=== PATIENT | male | born 1955 | race Caucasian/White ===

== ENCOUNTER → 2018-08-29 14:10 | Outpatient (CLI) | payer OTHER, SELFPAY ==
--- NOTE | 2018-08-29 14:16 | CT_ITS ---
EXAM: CT LUNG LOW DOSE WO CONTRAST COMPARISON: None no prior CT nor CXR studies available for comparison HISTORY: 1 pack per day for 45 years. Equal 45 pack-year. Currently smoking. No signs or symptoms of lung cancer. TECHNIQUE: The exam was performed on a GE Light Speed [address] scanner using 3.0 mGy CTDI. A low dose helical CT CHEST was performed on a multi-detector scanner. All CT scans at this facility use one or more dose reduction techniques, viz.: automated exposure control, ma/kV adjustment per patient size (including targeted exams where dose is matched to indication, i.e. head) or iterative reconstruction technique. The LDCT was performed in a facility that meets the criteria for the screening program. Data regarding this exam was submitted to ACR which is an approved registry. The order for this exam indicates that it came as a result of a lung cancer screening counseling shard decision-making visit that included all the elements required of such a visit including smoking cessation. The radiologist interpreting this exam meets the [facility] criteria for the LDCT lung cancer screening program. The exam is reported using the Lung-RADS classification scale and reported to the ACR registry. NOTE: This study was performed for the specific purposes of lung cancer screening and is not an alternative to diagnostic chest CT. RADIATION DOSE: CTDI vol(CT dose Index-volume) = 2.9mGy DLP (Dose Length Product) = 111.25 mGy-cm FINDINGS: *Largest Ovoid Nodule at peripheryLLL (axial image 59/coronal 45) . This measures up to 11.4 mm AP x 8 mm transverse & 9 mm height.. Ovoid soft tissue nodular density with no definitive calcification.-Mildly Suspicious nodule.-deems further evaluation as per protocol. Characterize Mild Suspicious Lung Nodule( LUNG RAD [id number] = due to 'new nodule greater than 8mm') There are other similar small nodules. Described below Several OTHER smaller areas of density/ & nodular densities within the lungs bilaterally, including a few minimal pleural based densities bilaterally tend to favor benign ( but may be with different perspective if there has been a right renal tumor ). These other small nodules discussed below likely will benefit from a a follow-up CT a few months. . Left Lung ... LLL small area of nodularity axial image 55, coronal slice 37. This measures up to 4.5 mm at its base ... LLL Mild fibrotic scarring overlying the left heart border, at medial aspect LLL- best seen sagittal slice 64, axial images 55-62. ... L UL Scant pleural-parenchymal scarring, anterior aspect lingula account for some minimal densities here. . L UL: Minimal wispy focal area of density periphery left midlung; 5 mm size ( sagittal slice 75, axial 38, 37.)-Likely reflects some scarring process related to the 4 mm calcified granuloma just medial to this area, at left midlung/along anterior aspect of the major fissure. Right Lung ... Minimal density at the anterior margin RML axial image 56, appears rather linear on sagittal image 24,.-Thus More likely reflects minimal linear scarring. ... Tiny just over 3 mm pleural-based density towards the periphery of the right lung apex pleural I in addition thyroid so on either no. Likely Reflect some minimal pleural & parenchymal scarring here.. Up to 6 mm mm benign-appearing fissure nodule/node on coronal image 50, axial slice 48.. This nodule along the along the inferior aspect of the major fissure. No Axial. With n smaller one measuring less than 3 mm just anterior to this, sagittal image 26 Scattered areas of more evident interstitial fibrotic changes for example just above the left hemidiaphragm. The anterior aspect of the RUL -------- . Mild to moderate centrilobular emphys
== END ==
PROVIDERS: PCP Family Medicine; Visit Provider Family Medicine
DX: Z12.2 Encounter for screening for malignant neoplasm of respiratory organs (principal); Z87.891 Personal history of nicotine dependence

== ENCOUNTER → 2018-10-31 07:12 | Outpatient (CLI) | payer MEDICARE, SELFPAY ==
[2018-10-31 13:44] LABS: Basophils % 0.4 % (0.1-2.0); Eosinophils # 0.3 K/mm3 (0.0-0.4); Eosinophils % 3.9 % (0.1-12.0); Hematocrit 44.3 % (42.0-52.0); Hemoglobin 15.3 g/dL (14.1-18.0); Lymphocytes # 1.8 K/mm3 (0.7-4.5); Lymphocytes % 26.1 % (10-50); Mean Corpuscular HGB Conc 34.5 g/dL (31.8-35.4); Mean Platelet Volume 8.7 fl (7.4-10.4); Monocytes # 0.4 K/mm3 (0.1-1.0); Monocytes % 5.2 % (1.7-9.3); Neutrophils # 4.5 K/mm3 (1.8-7.8); Neutrophils % 64.4 % (37.0-80.0); Platelet Count 213 K/mm3 (142-424); Red Blood Count 5.09 M/mm3 (4.60-6.20); Red Cell Distribution Width 13.1 % (11.5-17.5); White Blood Count 6.9 K/mm3 (4.8-10.8)
[2018-10-31 13:47] LABS: Activated Partial Thrombo Time 26.8 seconds (23.6-34.0); INR 0.96 (0.9-1.1)
== END ==
PROVIDERS: PCP Emergency Medicine; Visit Provider Emergency Medicine
DX: Z01.818 Encounter for other preprocedural examination (principal); Z51.81 Encounter for therapeutic drug level monitoring
CPT/HCPCS: 36415; 85025; 85610; 85730

== ENCOUNTER → 2018-11-04 09:55 | Outpatient (CLI) | payer MEDICARE, SELFPAY ==
--- NOTE | 2018-11-04 09:58 | CT_ITS ---
CT chest wo con HISTORY: ITS.REASON: left lung lesion/mass ORDERING PHYSICIAN: Quinton Trejo MD PATIENT AGE: 63 years COMPARISON: 08/29/2018 Technique: Axial images obtained. Sagittal, and coronal reformatted images are also generated and reviewed. All CT scans at the facility use one or more dose reduction, viz: automated exposure control, ma/kV adjustment per patient size (including targeted exams where dose is matched to indication, i.e. head), or iterative reconstruction technique. FINDINGS: The patient was scheduled for CT directed biopsy. Patient placed in the prone position and images obtained. Despite different positions and breathing methods small nodule within the left lower lobe persistently the 2 rib. Biopsy was therefore not performed. The nodule is not significant changed in size measuring approximately 10 x 7 mm without calcification. No mediastinal or hilar mass or adenopathy. There is COPD with paraseptal and centrilobular emphysema. There are scattered small subpleural nodular opacities once again noted which are not significantly changed. Upper abdominal images show prior right nephrectomy IMPRESSION: 1. Stable bilateral subpleural nodular densities. The largest nodule is in the left lower lobe in the subpleural region at 10 x 7 mm not significant changed. This nodule was not able to be biopsied due to overlying rib. Recommend [address] follow-up. 2. COPD/centrilobular and paraseptal edema
== END ==
PROVIDERS: PCP Emergency Medicine; Visit Provider Emergency Medicine
DX: R91.1 Solitary pulmonary nodule (principal)
CPT/HCPCS: 71250

== ENCOUNTER → 2019-05-20 14:26 | Outpatient (CLI) | payer MEDICARE, SELFPAY ==
--- NOTE | 2019-05-20 14:26 | CT_ITS ---
PROCEDURE: CT CHEST WO CON CLINICAL INDICATION: 6 mth f/u on nodule COMPARISON: LUNGSCREEN CT lung screening from 08/29/2018 TECHNIQUE: Axial images obtained with sagittal and coronal reformats. All CT scans at the facility use one or more dose reduction, viz: automated exposure control, ma/kV adjustment per patient size (including targeted exams where dose is matched to indication, i.e. head), or iterative reconstruction technique. FINDINGS: There are scattered small mediastinal lymph nodes. Coronary artery calcifications are. No evidence of pericardial effusion. There are centrilobular and paraseptal emphysematous changes. There hemangioma in the T12 vertebral body unchanged. Varicosities are present in the perisplenic region and retroperitoneum superiorly on the left. There is a 4 mm subpleural nodule in the right upper lobe. A 6 mm fissural nodules present on the right unchanged. Subpleural opacities are present in the right upper lobe anteriorly unchanged. Subpleural nodular density right lower lobe medially at 9 mm unchanged. Irregular opacity present in the left upper lobe laterally unchanged. Subpleural nodule in the left lower lobe once again noted at 12 x 11 mm unchanged. Additional small passed in left lung base laterally in the subpleural region unchanged. IMPRESSION: Overall no significant change in the multiple pulmonary nodules with the largest nodule measuring 11 x 12 mm in the subpleural region in the left lower lobe stable since 08/29/2018. Continued six-month follow-up suggested. Dictated by: Miguel Cardenas MD 05/21/2019 11:06 Electronically signed by Miguel Cardenas MD in [place] 05/21/2019 11:06
== END ==
PROVIDERS: PCP Emergency Medicine; Visit Provider Emergency Medicine
DX: R91.1 Solitary pulmonary nodule (principal)
CPT/HCPCS: 71250

== ENCOUNTER 2020-03-05 11:32 | Emergency (ER) | payer MEDICARE, SELFPAY ==
[2020-03-05 11:43] VITALS: BP 132/79; PULSE 69; RESP 19; TEMP 36.8; O2SAT 97; BMI 31.7
--- NOTE | 2020-03-05 11:54 | HMH.EDUTC ---
[facility] [place] Disposition Clinical Impression: Bronchitis Sinusitis Qualifiers: Sinusitis location: unspecified location Chronicity: unspecified Qualified Code(s): J32.9 - Chronic sinusitis, unspecified Disposition: Home, Self-Care Condition on Discharge: Good Instructions: Sinusitis, DI for Sinusitis, DI for Acute Bronchitis Additional Instructions: *Monitor Temp, Over the counter Motrin or Tylenol as directed/as needed Tylenol every 4 hours and Motrin every 6 hours (as long as your family doctor has told you that you can take it) for fever or pain. and straight to ER if unable to lower temp less than 101.0 after medication given *Warm salt water gargles may help to soothe the throat *Throat Lozenges *Warm fluids like tea with honey may help to soothe the throat *Sleep elevated *Humidifier/Vaporizer Take medication as prescribed Follow up IMMEDIATELY for new or worsening symptoms or no Noticeable improvement over the next 48-72 hours. 911 for difficulty breathing or swallowing You was tested for today for COVID19 your test result should be back later this evening, you may call back later this evening to see if your test results are back and the result You was given a handout with instructions for Self Quarantine and Self isolation for while you wait on test results and what to do if they are positive Prescriptions: Albuterol Sulfate [Proventil-HFA 90mcg/puff Inh] 1 - 2 puffs IH Q4HP PRN #1 inh PRN Reason: Shortness Of Breath Transmission Status: Received by [facility] #[id number] Azithromycin [Z-Adam 250mg Tab] 250 mg PO DIRECTED #6 tab Transmission Status: Received by [facility] #[id number] Referrals: Quinton Trejo MD [Primary Care Provider] - As needed Time of Disposition: 12:17 Medical Decision Making - Yrn Inquiry Pt receiving controlled substance: No Yrn was queried for this patient: No Vital Signs: 03/05/20 11:43 Temperature 98.2 F Temperature Source Oral Pulse Rate [Radial] 69 Respiratory Rate 19 Blood Pressure [Right Arm] 132/79 Blood Pressure Mean [Right Arm] 96 Blood Pressure Source [Right Arm] Automatic Cuff Blood Pressure Position [Right Arm] Sitting 02 Sat by Pulse Oximetry 97 Oxygen Delivery Method Room Air Orders (Tests/Meds): ED MEDICATIONS Discontinued Medications Generic Name Dose Route Start Last Admin Trade Name Kristen PRN Reason Stop Dose Admin Methylprednisolone Sodium Succinate 125 mg 03/05/20 12:07 03/05/20 12:15 Methylprednisolone Sod Succ 125mg Vial IM 03/05/20 12:08 125 mg ONCE ONE Administration ORDERS Category Date Time Status Covid-19 Nasal PCR ([facility]) Routine Lab 03/05/20 11:53 Ordered [facility] [place] HPI - General Stated complaint: fever,chills,diarrhea Time Seen by Provider: 03/05/20 11:54 Mode of Arrival: Ambulatory Source of Information: Patient Limitations: No Limitations Description of Symptoms (Recalled from Triage Doc. by RN): fever, body aches, sinus pressure x 2 days HEENT Symptoms (Recalled from RN notes): Yes Resp Symptoms (Recalled from RN notes): No Skin Symptoms (Recalled from RN notes): No MS Symptoms (Recalled from RN notes): No Functional Status (Recalled from RN notes): wnl - History of Present Illness Provider Complaint: Patient states that has been having fever, chills, body aches and sinus pressure for several days States that he has a history of COPD and usually gets a sinus infection and bronchitis about every year States that family concerned with COVID States that he is feeling a little better today but still having some pressure so he came in - Related Data Previous Rx's Medication Instructions Recorded fluticasone furoate 100 1 inh INHALATION DAILY #60 each 11/24/19 mcg-vilanterol 25 mcg/dose inhalation powder probenecid 500 mg-colchicine 0.5 1 tab PO DAILY #90 tab 11/24/19 mg tablet allopurinol 100 mg tablet 100 mg PO DAILY #90 tab 02/19/20 lisinopril 10 1 tab PO DAILY #90 tab
[2020-03-05 12:36] VITALS: BP 132/79; PULSE 69; RESP 19; TEMP 36.8; O2SAT 97
== END 2020-03-05 12:37 | disposition home or self-care (01) ==
PROVIDERS: Emergency Provider Nurse Practitioner; PCP Emergency Medicine
DX: J20.9 Acute bronchitis, unspecified (principal); J32.9 Chronic sinusitis, unspecified; Z20.828 Contact with and (suspected) exposure to other viral communicable diseases; J44.9 Chronic obstructive pulmonary disease, unspecified; I10 Essential (primary) hypertension; Z90.5 Acquired absence of kidney; F17.210 Nicotine dependence, cigarettes, uncomplicated; Z79.899 Other long term (current) drug therapy
CPT/HCPCS: G0463; 96372; 99202; U0003

== ENCOUNTER → 2020-08-25 14:22 | Outpatient (CLI) | payer MEDICARE, SELFPAY ==
[2020-08-25 14:37] LABS: Basophils # 0.1 K/mm3 (0-0.2); Basophils % 0.9 % (0.1-2.0); Eosinophils # 0.2 K/mm3 (0.0-0.4); Eosinophils % 3.1 % (0.1-12.0); Hematocrit 47.1 % (42.0-52.0); Hemoglobin 15.7 g/dL (14.1-18.0); Lymphocytes # 1.8 K/mm3 (0.7-4.5); Lymphocytes % 27.8 % (10-50); Mean Corpuscular HGB Conc 33.3 g/dL (31.8-35.4); Mean Corpuscular Hemoglobin 29.9 pg (27.0-31.2); Mean Corpuscular Volume 89.9 fl (80-94); Mean Platelet Volume 10.2 fl (7.4-10.4); Monocytes # 0.5 K/mm3 (0.1-1.0); Monocytes % 8.1 % (1.7-9.3); Neutrophils # 3.9 K/mm3 (1.8-7.8); Neutrophils % 60.1 % (37.0-80.0); Platelet Count 221 K/mm3 (142-424); Red Blood Count 5.24 M/mm3 (4.60-6.20); Red Cell Distribution Width 13.5 % (11.5-17.5); White Blood Count 6.5 K/mm3 (4.8-10.8)
[2020-08-25 14:40] LABS: Alanine Aminotransferase 17 U/L (12-78); Albumin Level 3.9 g/dl (3.5-5.0); Albumin/Globulin Ratio 1.6 (1.1-1.8); Alkaline Phosphatase 68 U/L (38-126); Anion Gap 11.2 mEq/L (5-15); Aspartate Amino Transferase 23 U/L (17-59); Bilirubin,Total 0.7 mg/dl (0.2-1.3); Blood Urea Nitrogen 21 mg/dl (9-20); Calcium 9.6 mg/dl (8.4-10.2); Carbon Dioxide 25 mmol/L (22.0-30.0); Chloride 108 mmol/L (98-107); Chol/HDL Ratio 4.8 (1-3.5); Cholesterol 198 mg/dl (140-200); Estimated Glomerular Filt Rate 67 ml/min (>60); GFR (African American) 81 ML/MIN (>60); Globulin 2.5 g/dL (1.3-3.2); Glucose 84 mg/dl (74-100); HDL Cholesterol 41 mg/dl (40-60); Potassium 5.2 mmoL/L (3.5-5.1); Sodium 139 mmol/L (136-145); Total Protein,Serum 6.4 g/dl (6.3-8.2); Triglycerides 128 mg/dl (30-150); VLDL Cholesterol 26 mg/dL (0-40)
[2020-08-25 14:51] LABS: Direct LDL Cholesterol 130.02 mg/dL (100-129)
[2020-08-25 14:55] LABS: 25-OH Vitamin D, Total 13.6 ng/mL (30-100)
[2020-08-25 14:57] LABS: T4 (Thyroxine) 8.4 ug/dl (5.53-11.0)
[2020-08-25 15:10] LABS: Thyroid Stimulating Hormone 0.94 uIU/mL (0.465-4.68)
== END ==
PROVIDERS: Visit Provider Nurse Practitioner Family
DX: I10 Essential (primary) hypertension (principal); Z00.00 Encounter for general adult medical examination without abnormal findings; E55.9 Vitamin D deficiency, unspecified; E66.9 Obesity, unspecified; J32.9 Chronic sinusitis, unspecified
CPT/HCPCS: 80053; 80061; 82306; 84436; 84443; 85025

== ENCOUNTER → 2020-10-07 07:53 | Outpatient (CLI) | payer MEDICARE, SELFPAY | PROVIDERS: PCP Nurse Practitioner Family; Visit Provider Nurse Practitioner Family | DX: R06.02 Shortness of breath (principal) | CPT/HCPCS: 94060; 94618; 94726; 94729 ==

== ENCOUNTER → 2020-11-09 08:39 | Outpatient (CLI) | payer MEDICARE, SELFPAY ==
--- NOTE | 2020-11-09 08:39 | CT_ITS ---
PROCEDURE: CT CHEST WO CON CLINICAL INDICATION: Nodule followup [place] COMPARISON: CT CT CHEST WO CON from 05/20/2019 TECHNIQUE: Axial images obtained with sagittal and coronal reformats. All CT scans at the facility use one or more dose reduction, viz: automated exposure control, ma/kV adjustment per patient size (including targeted exams where dose is matched to indication, i.e. head), or iterative reconstruction technique. FINDINGS: HEART AND MEDIASTINAL STRUCTURES: No mediastinal or hilar mass. Coronary artery calcifications are present. LUNGS AND PLEURAL SPACES: COPD with paraseptal emphysematous changes. There has been no significant change in the multiple subpleural and parenchymal opacities with the largest being in the left lower lobe in the subpleural region at 12 mm. No effusions or infiltrates. No new nodular opacities apparent. BONY STRUCTURES: No acute finding. A round area of decreased attenuation with some trabeculation noted in the T12 vertebral body consistent with a hemangioma UPPER ABDOMEN: A prominent perisplenic and left frantz renal varices. Prior right nephrectomy ADDITIONAL FINDINGS: No other significant abnormalities. IMPRESSION: Overall stable CT appearance of the chest. No change in the multiple subpleural and parenchymal opacities. COPD with paraseptal emphysema. Prominent perisplenic and left Frantz renal varices suggesting portal hypertension Dictated by: Miguel Cardenas MD 11/10/2020 09:18 Miguel Cardenas MD in [place] 11/10/2020 09:18
== END ==
PROVIDERS: PCP Nurse Practitioner Family; Visit Provider Internal Medicine Pulmonary Disease
DX: R91.8 Other nonspecific abnormal finding of lung field (principal)
CPT/HCPCS: 71250

== ENCOUNTER 2022-01-12 08:58 | Emergency (ER) | payer MEDICARE, SELFPAY ==
--- NOTE | 2022-01-12 09:12 | XR_ITS ---
FINAL REPORT CLINICAL HISTORY: cough 2 weeks..smoker FINDINGS: 2 views of the chest were obtained . The heart is normal in size. The mediastinum is within normal limits. There is mild bibasilar atelectasis or scarring. There is no pneumothorax. Osseous structures are unremarkable. IMPRESSION: Mild bibasilar atelectasis or scarring. Reviewed, Interpreted and Dictated by Esau Bass III, MD Transcribed by Janet Richmond Authenticated and [facility]
[2022-01-12 09:24] VITALS: BP 133/56; PULSE 61; RESP 16; TEMP 36.5; O2SAT 99; BMI 31.2
--- NOTE | 2022-01-12 10:02 | HMH.EDUTC ---
[facility] [place] Clinical Impression: COPD exacerbation Sinusitis Qualifiers: Sinusitis location: unspecified location Chronicity: acute Recurrence: non-recurrent Qualified Code(s): J01.90 - Acute sinusitis, unspecified Disposition: Home, Self-Care Condition on Discharge: Good Instructions: Sinusitis, DI for Sinusitis, DI for COVID-19 (Suspected or Confirmed ), Preventing the Spread of Coronavirus Discharge Instructions Additional Instructions: Drink plenty of fluids. Take tylenol or ibuprofen for pain or fever. Take the medications as directed. Follow up with your regular doctor. GO TO THE ER FOR ANY WORSENING SYMPTOMS Quarantine until you know the results of your covid-19 test. Notify your school or workplace of your results and follow their instructions regarding return to work/school. Prescriptions: Amoxicillin/Potassium Clav [Amox-Clav 875-125 mg Tablet] 1 tab PO BID #20 tab Transmission Status: Received by [facility] #[id number] Benzonatate [Benzonatate 100mg cap] 100 mg PO TIDP PRN #30 cap PRN Reason: Cough Transmission Status: Received by [facility] #[id number] methylPREDNISolone [Medrol] 4 mg PO DIRECTED 6 Days #21 packet Transmission Status: Received by [facility] #[id number] Referrals: Quinton Trejo MD [Primary Care Provider] - Time of Disposition: 10:24 Medical Decision Making - Medical Records Medical records reviewed: No: I reviewed the patient's medical records. - Yrn Inquiry Pt receiving controlled substance: No Vital Signs: 01/12/22 09:24 01/12/22 10:27 Temperature 97.7 F 97.7 F Temperature Source Oral Pulse Rate 61 Pulse Rate [Left] 61 Respiratory Rate 16 16 Blood Pressure 133/56 L Blood Pressure [Right Arm] 133/56 L Blood Pressure Mean [Right Arm] 81 02 Sat by Pulse Oximetry 99 Orders (Tests/Meds): ED MEDICATIONS Discontinued Medications Generic Name Dose Route Start Last Admin Trade Name Freq PRN Reason Stop Dose Admin Methylprednisolone Sodium Succinate 125 mg 01/12/22 10:04 01/12/22 10:16 Methylprednisolone Sod Succ 125mg Vial IM 01/12/22 10:05 125 mg ONCE ONE Administration [facility] [place] HPI - General Stated complaint: Possible sinus infection Time Seen by Provider: 01/12/22 10:18 Mode of Arrival: Ambulatory Source of Information: Patient Limitations: No Limitations Description of Symptoms (Recalled from Triage Doc. by RN): patient comes in with complaints of sinus infection and congestion.symptoms have been ongoing for 1.5 weeks. patient states he has taken otc sudaphed and it has not helped. HEENT Symptoms (Recalled from RN notes): Yes Resp Symptoms (Recalled from RN notes): Yes Skin Symptoms (Recalled from RN notes): No MS Symptoms (Recalled from RN notes): No Functional Status (Recalled from RN notes): n/a - History of Present Illness Provider Complaint: He states that for the past 2 days he has had sinus congestion, sore throat and he has felt bad. - Related Data Home Medications Medication Instructions Recorded Confirmed Lisinopril/Hydrochlorothiazide See Rx Instructions .ROUTE .COMPLEX 01/12/22 01/12/22 [Lisinopril-Hctz 10-12.5 mg Tab] Ropinirole HCl See Rx Instructions .ROUTE .COMPLEX 01/12/22 01/12/22 allopurinoL [Allopurinol 100mg See Rx Instructions .ROUTE .COMPLEX 01/12/22 01/12/22 tablet] Previous Rx's Medication Instructions Recorded albuterol sulfate 90 mcg/actuation 2 puff INHALATION Q6H PRN #8.5 g 10/12/20 aerosol inhaler tiotropium bromide 2.5 2 inh INHALATION DAILY #4 g 11/09/20 mcg/actuation mist for inhalation Amoxicillin/Potassium Clav 1 tab PO BID #20 tab 01/12/22 [Amox-Clav 875-125 mg Tablet] Benzonatate [Benzonatate 100mg 100 mg PO TIDP PRN #30 cap 01/12/22 cap] methylPREDNISolone [Medrol] 4 mg PO DIRECTED 6 Days #21 01/12/22 packet Allergies Allergy/AdvReac Type Severity Reaction Status Date / Time No Known A
[2022-01-12 10:27] VITALS: BP 133/56; PULSE 61; RESP 16; TEMP 36.5
== END 2022-01-12 10:29 | disposition home or self-care (01) ==
PROVIDERS: Emergency Provider Nurse Practitioner Family; PCP Emergency Medicine
DX: J01.90 Acute sinusitis, unspecified (principal); I10 Essential (primary) hypertension; F17.210 Nicotine dependence, cigarettes, uncomplicated; Z20.822 Contact with and (suspected) exposure to COVID-19; Z79.82 Long term (current) use of aspirin; Z79.899 Other long term (current) drug therapy; Z80.9 Family history of malignant neoplasm, unspecified
CPT/HCPCS: 71046; 96372; 99213; C9803; G0463; U0003; U0005

== ENCOUNTER → 2022-06-22 17:16 | Outpatient (CLI) | payer MEDICARE, SELFPAY ==
[2022-06-22 15:20] LABS: Basophils # 0.1 K/mm3 (0-0.2); Basophils % 1.2 % (0.1-2.0); Eosinophils # 0.3 K/mm3 (0.0-0.4); Hemoglobin 16.1 g/dL (14.1-18.0); Lymphocytes # 2.3 K/mm3 (0.7-4.5); Lymphocytes % 29.2 % (10-50); Mean Corpuscular HGB Conc 33.5 g/dL (31.8-35.4); Mean Corpuscular Volume 92.5 fl (80-94); Mean Platelet Volume 10.3 fl (7.4-10.4); Monocytes # 0.7 K/mm3 (0.1-1.0); Monocytes % 8.8 % (1.7-9.3); Neutrophils # 4.4 K/mm3 (1.8-7.8); Neutrophils % 56.8 % (37.0-80.0); Platelet Count 255 K/mm3 (142-424); Red Blood Count 5.19 M/mm3 (4.60-6.20); White Blood Count 7.7 K/mm3 (4.8-10.8)
[2022-06-22 15:54] LABS: Alanine Aminotransferase 18 U/L (12-78); Albumin Level 3.8 g/dl (3.5-5.0); Albumin/Globulin Ratio 1.6 (1.1-1.8); Alkaline Phosphatase 75 U/L (38-126); Anion Gap 9.4 mEq/L (5-15); Aspartate Amino Transferase 25 U/L (17-59); Bilirubin,Total 0.7 mg/dl (0.2-1.3); Blood Urea Nitrogen 18 mg/dl (9-20); Calcium 9.1 mg/dl (8.4-10.2); Carbon Dioxide 28 mmol/L (22.0-30.0); Chloride 107 mmol/L (98-107); Chol/HDL Ratio 4.5 (1-3.5); Cholesterol 185 mg/dl (140-200); Estimated Glomerular Filt Rate 74 ml/min (>60); GFR (African American) 90 ML/MIN (>60); Globulin 2.4 g/dL (1.3-3.2); Glucose 81 mg/dl (74-100); HDL Cholesterol 41 mg/dl (40-60); Potassium 5.4 mmoL/L (3.5-5.1); Sodium 139 mmol/L (136-145); Total Protein,Serum 6.2 g/dl (6.3-8.2); Triglycerides 114 mg/dl (30-150); VLDL Cholesterol 23 mg/dL (0-40)
[2022-06-22 16:05] LABS: Direct LDL Cholesterol 120.34 mg/dL (100-129)
[2022-06-22 16:24] LABS: Prostate Specific Ag Screen 1.3 ng/ml (0.0-4.0)
== END ==
PROVIDERS: PCP Nurse Practitioner Family; Visit Provider Nurse Practitioner Family
DX: I10 Essential (primary) hypertension (principal); Z12.5 Encounter for screening for malignant neoplasm of prostate
CPT/HCPCS: 80053; 80061; 84443; 85025; G0103

== ENCOUNTER 2022-12-17 10:52 | Emergency (ER) | payer MEDICARE, SELFPAY ==
[2022-12-17 11:00] VITALS: BP 136/81; PULSE 59; RESP 20; TEMP 36.6; O2SAT 99; BMI 31.1
--- NOTE | 2022-12-17 11:08 | XR_ITS ---
FINAL REPORT CLINICAL HISTORY: pain and swelling after feeling a pop in calf area FINDINGS: AP and lateral views of the left tibia and fibula were obtained. There is no prior exam for comparison. There is no acute osseous abnormality of the left tibia or fibula. There is no acute fracture of the left tibia or fibula. There is mild degenerative disease at the knee and ankle. There is posterior soft tissue edema. IMPRESSION: No acute osseous abnormality of the left tibia or fibula. Reviewed, Interpreted and Dictated by Merly Pedersen MD Transcribed by Shiraz Rothman Authenticated and [facility]
--- NOTE | 2022-12-17 11:10 | CA_ITS ---
FINAL REPORT TECHNIQUE: Ultrasound images of the deep venous system were obtained from the left groin to the calf veins. CLINICAL HISTORY: left leg pain and swelling post injury 12/03 or 12/04/22. States he was lifting something and felt a pop in his left posterior calf. Pain has continued and he now has purplish-red spots on the distal calf near the ankle. Smoker, HTN. COMPARISON: None FINDINGS: The deep venous system is normally compressible. Normal flow is identified. IMPRESSION: No evidence of left lower extremity DVT. Reviewed, Interpreted and Dictated by Merly Pedersen MD Transcribed by Spring Perales Authenticated and . [facility]
--- NOTE | 2022-12-17 11:17 | EXP.UTC ---
Discharge Plan Disposition Patient Disposition: Home, Self-Care Condition: Good Prescriptions Prescriptions: No Action allopurinol 100 mg tablet See Rx Instructions .Route .COMPLEX Qty: 90 1RF Rx Instructions: TAKE 1 TABLET BY MOUTH EVERY DAY FOR GOUT lisinopril-hydrochlorothiazide 10-12.5 mg tablet See Rx Instructions .ROUTE .COMPLEX Qty: 90 1RF Dose Instruction: TAKE 1 TABLET BY MOUTH DAILY FOR BLOOD PRESSURE Rx Instructions: TAKE 1 TABLET BY MOUTH DAILY FOR BLOOD PRESSURE albuterol sulfate 90 mcg/actuation HFA aerosol inhaler 2 puff INHALATION Q6H PRN (Reason: shortness of breath or wheezing) Qty: 8.5 12RF Spiriva Respimat 2.5 mcg/actuation mist 2 inh INHALATION DAILY Qty: 4 6RF ropinirole 1 mg tablet 2 mg PO HS Qty: 60 2RF Referrals Follow up/Referrals: Tha Marrufo APRN [Primary Care Provider] - See instructions Wero Briceño DO [Staff Physician] - See instructions Activity Restrictions/Add. Instructions Additional Instructions/Restrictions: Elevate area when at rest Follow up with your Family Doctor or Orthopedics if pain continues or no improvement Return if needed Straight to ER if any life threatening symptoms Clinical Impressions Clinical Impression: Lower extremity pain Qualifiers: Laterality: left Qualified Code(s): M79.605 - Pain in left leg Instructions Patient Instructions: Calf Muscle Strain, How to Apply an Blas Wrap Discharge ED Provider: Juanis Chung [facility] General Stated complaint: LEFT LEG PAIN Mode of Arrival: Ambulatory Source of Information: Patient Limitations: No Limitations Time Seen by Provider: 12/17/22 11:17 Description of Symptoms (Recalled from Triage Doc. by RN): PATIENT STATES THAT AROUND 12/04 HE WAS LIFTING SOMETHING AND FELT A POP IN HIS LEFT LOWER LEG. HE STATES IT INITIALLY WAS SWOLLEN, BUT THAT HAS GONE DOWN. NOW HE HAD RED-PURPLE SPOTS TO LEFT CALF AREA FROM KNEE DOWN TO FOOT HEENT Symptoms (Recalled from RN notes): No Resp Symptoms (Recalled from RN notes): No Skin Symptoms (Recalled from RN notes): No MS Symptoms (Recalled from RN notes): Yes Functional Status (Recalled from RN notes): WNL History of Present Illness Provider Complaint: Patient states that around the or 04 of December he was lifting something heavy and felt a pop in his left calf area States that it swelled up and was sore and tender but that has improved some but now he has like reddish purple looking areas on leg worse around foot and ankle area and today wasnt any better so he came in to get it checked Denies warmth Related Data Previous Rx's Medication Instructions Recorded albuterol sulfate 90 mcg/actuation 2 puff inhalation Q6H PRN 06/22/22 aerosol inhaler shortness of breath or wheezing #8.5 grams allopurinol 100 mg tablet See Rx Instructions .Route 06/22/22 .COMPLEX gout #90 tabs lisinopril 10 See Rx Instructions .Route 06/22/22 mg-hydrochlorothiazide 12.5 mg .COMPLEX #90 tabs tablet tiotropium bromide 2.5 2 inh inhalation DAILY #4 grams 06/22/22 mcg/actuation mist for inhalation (Spiriva Respimat) ropinirole 1 mg tablet 2 mg PO HS Restless leg #60 tabs 10/08/22 Allergies Allergy/AdvReac Type Severity Reaction Status Date / Time No Known Allergies Allergy Verified 06/22/22 11:21 Worker's Comp Is this a Worker's Comp case?: No [facility] Disclaimer: The information contained in this section may have been updated after the patient was seen, as this information can be updated by other users. Social History Smoking Status: Current every day smoker tobacco type: cigarettes packs per day: 1 second hand exposure: Yes alcohol intake: never substance use type: denies use current occupational status: other Travel in the last 8 weeks: None household members: family housing: house ROS Obtained: Yes All systems reviewed & no additional complaints except as documented and Yes Systems reviewed as
[2022-12-17 12:51] VITALS: BP 136/81; PULSE 59; RESP 20; TEMP 36.6; O2SAT 99
== END 2022-12-17 12:54 | disposition home or self-care (01) ==
PROVIDERS: Emergency Provider Nurse Practitioner; PCP Nurse Practitioner Family
DX: M79.605 Pain in left leg (principal); F17.210 Nicotine dependence, cigarettes, uncomplicated
CPT/HCPCS: 73590; 93971; 99212; 99214; G0463

== ENCOUNTER 2023-08-29 11:39 | Outpatient (CLI) | payer MEDICARE, SELFPAY ==
--- NOTE | 2023-08-29 11:43 | XR_ITS ---
FINAL REPORT CLINICAL HISTORY: Bilat knee pain COMPARISON: None FINDINGS: LEFT KNEE: 4 views of the left knee obtained. There is no acute fracture or dislocation. There is sharpening of the tibial spines. There is mild subchondral sclerosis of the medial joint space. There are small osteophytes along the undersurface of the patella. There is no soft tissue abnormality. IMPRESSION: Mild changes of medial compartment and patellofemoral osteoarthritis. Reviewed, Interpreted and Dictated by Julian Rocha MD Transcribed by Spring Perales Authenticated and [facility]
--- NOTE | 2023-08-29 11:43 | XR_ITS ---
FINAL REPORT CLINICAL HISTORY: Bilat Knee pain COMPARISON: None FINDINGS: RIGHT KNEE: 4 views of the right knee obtained. There is no acute fracture or dislocation. There is mild to moderate subchondral sclerosis of the medial compartment joint space. There are small osteophytes along the undersurface of the patella. There is no soft tissue abnormality. IMPRESSION: Mild to moderate changes of medial compartment and patellofemoral osteoarthritis. Reviewed, Interpreted and Dictated by Julian Rocha MD Transcribed by Spring Perales Authenticated and [facility]
== END 2023-08-29 23:59 ==
LOC: RAD 11:40
PROVIDERS: PCP Nurse Practitioner Family; Visit Provider Nurse Practitioner Family
DX: M25.561 Pain in right knee (principal); M25.562 Pain in left knee
CPT/HCPCS: 73562

== ENCOUNTER 2023-09-25 10:50 | Outpatient (POV) | payer MEDICARE, SELFPAY | END 2023-09-25 23:59 | disposition home or self-care (01) | LOC: SC 10:50 | PROVIDERS: Visit Provider Specialist/Technologist | DX: Z00.00 Encounter for general adult medical examination without abnormal findings (principal) ==

== ENCOUNTER 2023-12-26 08:00 | Outpatient (RCR) | payer MEDICARE, SELFPAY | END 2023-12-31 08:55 | disposition home or self-care (01) | LOC: PT 08:00 | PROVIDERS: Visit Provider Physician Assistant | DX: M51.36 Other intervertebral disc degeneration, lumbar region (principal) | CPT/HCPCS: 97014; 97110; 97140; 97163; G0283 ==

== ENCOUNTER 2024-06-09 09:16 | Outpatient (CLI) | payer MEDICARE, SELFPAY ==
--- NOTE | 2024-06-09 09:44 | ECG_ITS ---
APPROVED REPORT Exam: Resting ECG HR:61 bpm ECG Measurements Heart Rate 61 AXES FL 151 P 53 QRSd 108 QRS 4 QT 389 T 41 QTc 393 Conclusion SINUS RHYTHM INCOMPLETE RIGHT BUNDLE BRANCH BLOCK [90+ ms QRS DURATION, TERMINAL R IN V1/V2, 40+ ms S IN I/aVL/V4/V5/V6] BORDERLINE ECG UNCONFIRMED REPORT Electronically signed by : Steven Leyva MD 06/09/2024 10:39:55
[2024-06-09 09:50] LABS: Microscopic, Urine URINE MICROSCOPIC (MICROSCOPIC)
--- NOTE | 2024-06-09 10:03 | XR_ITS ---
FINAL REPORT TECHNIQUE: Chest PA & Lateral CLINICAL HISTORY: smoker, knee replacement pre op COMPARISON: 01/12/2022 FINDINGS: 2 views of the chest were performed. The heart size is normal. The mediastinum is within normal limits. There is no acute cardiopulmonary process. There are no pleural effusions. There is no pneumothorax. The bony thorax appears intact. IMPRESSION: No acute cardiopulmonary process. Reviewed, Interpreted and Dictated by Julian Rocha MD Transcribed by Spring Perales Authenticated and [facility]
[2024-06-09 10:28] LABS: Appearance,Urine CLEAR (Clear); Basophils # 0.1 K/mm3 (0-0.2); Basophils % 0.6 % (0.1-2.0); Bilirubin,Urine Negative (Negative); Blood, Urine Negative (Negative); Color,Urine YELLOW (Yellow); Eosinophils # 0.2 K/mm3 (0.0-0.4); Eosinophils % 2.1 % (0.1-12.0); Glucose,Urine (UA) Negative (Negative); Hematocrit 47.8 % (42.0-52.0); Hemoglobin 16.1 g/dL (14.1-18.0); Ketones,Urine Negative (Negative); Leukocyte Esterase,Urine Negative (Negative); Lymphocytes # 1.8 K/mm3 (0.7-4.5); Lymphocytes % 22.8 % (10-50); Mean Corpuscular HGB Conc 33.7 g/dL (31.8-35.4); Mean Corpuscular Hemoglobin 30.1 pg (27.0-31.2); Mean Corpuscular Volume 89.3 fl (80-94); Mean Platelet Volume 9.6 fl (7.4-10.4); Monocytes # 0.9 K/mm3 (0.1-1.0); Monocytes % 10.6 % (1.7-9.3); Neutrophils # 5.1 K/mm3 (1.8-7.8); Neutrophils % 63.5 % (37.0-80.0); Nitrate,Urine Negative (Negative); Platelet Count 268 K/mm3 (142-424); Protein,Urine Negative (Negative); Red Blood Count 5.35 M/mm3 (4.60-6.20); Red Cell Distribution Width 13.2 % (11.5-17.5); Specific Gravity, Urine 1.015 (1.005-1.030); Urobilinogen,Urine 0.2 EU/dl (0.2)
[2024-06-09 10:38] LABS: Barbiturates Screen,Urine Negative ng/ml (<200)
[2024-06-09 10:39] LABS: Benzodiazepines Screen,Urine Negative ng/ml (<200)
[2024-06-09 10:40] LABS: Amphetamine/Metha Screen,Urine Negative ng/ml (<1000); Bacteria,Urine Trace /lpf; Methadone Screen,Urine Negative ng/ml (<300); Squamous Epithelial Cell,Urine Occasional #/hpf (0-5)
[2024-06-09 10:41] LABS: Cannabinoid Screen,Urine Negative ng/ml (<50); Cocaine Screen,Urine Negative ng/ml (<300)
[2024-06-09 10:42] LABS: Opiate Screen,Urine Negative ng/ml (<300)
[2024-06-09 10:43] LABS: Phencyclidine Screen,Urine Negative ng/ml (<25)
[2024-06-09 10:51] LABS: Activated Partial Thrombo Time 28.5 seconds (22.8-30.6); Prothrombin Time 10.3 seconds (10.1-12.5)
[2024-06-09 10:58] LABS: Alanine Aminotransferase 17 U/L (12-78); Albumin Level 3.9 g/dl (3.5-5.0); Albumin/Globulin Ratio 1.9 (1.1-1.8); Alkaline Phosphatase 74 U/L (38-126); Anion Gap 10.2 mEq/L (5-15); Aspartate Amino Transferase 23 U/L (17-59); Blood Urea Nitrogen 14 mg/dl (9-20); Calcium 9.7 mg/dl (8.4-10.2); Carbon Dioxide 26 mmol/L (22.0-30.0); Chloride 100 mmol/L (98-107); Chol/HDL Ratio 4.2 (1-3.5); Cholesterol 176 mg/dl (140-200); Estimated Glomerular Filt Rate 66 ml/min (>60); GFR (African American) 80 ML/MIN (>60); Globulin 2.1 g/dL (1.3-3.2); Glucose 82 mg/dl (74-100); HDL Cholesterol 42 mg/dl (40-60); Potassium 4.2 mmoL/L (3.5-5.1); Sodium 132 mmol/L (136-145); Triglycerides 99 mg/dl (30-150); VLDL Cholesterol 20 mg/dL (0-40)
[2024-06-09 11:00] LABS: Hemoglobin A1C 5.1 % (4.0-6.0)
[2024-06-09 11:09] LABS: Direct LDL Cholesterol 124.36 mg/dL (100-129)
[2024-06-09 11:15] LABS: T4 (Thyroxine) 11.3 ug/dl (5.53-11.0)
[2024-06-09 11:29] LABS: Prostate Specific Ag Screen 1.3 ng/ml (0.0-4.0); Thyroid Stimulating Hormone 0.69 uIU/mL (0.465-4.68)
== END 2024-06-09 23:59 | disposition home or self-care (01) ==
LOC: LAB 09:17
PROVIDERS: PCP Nurse Practitioner Family; Visit Provider Nurse Practitioner Family
DX: Z01.818 Encounter for other preprocedural examination (principal); M25.561 Pain in right knee; M25.562 Pain in left knee; F17.210 Nicotine dependence, cigarettes, uncomplicated; I10 Essential (primary) hypertension; J44.9 Chronic obstructive pulmonary disease, unspecified; Z12.5 Encounter for screening for malignant neoplasm of prostate; Z13.1 Encounter for screening for diabetes mellitus; Z51.81 Encounter for therapeutic drug level monitoring
CPT/HCPCS: 36415; 71046; 80053; 80061; 80307; 81001; 83036; 84436; 84443; 85025; 85610; 85730; 87081; 93005; G0103

== ENCOUNTER 2024-07-31 10:00 | Outpatient (RCR) | payer MEDICARE, SELFPAY | END 2024-07-31 23:59 | disposition home or self-care (01) | LOC: PT 10:00 | PROVIDERS: Visit Provider Orthopaedic Surgery Adult Reconstructive Orthopaedic Surgery | DX: M25.562 Pain in left knee (principal); Z96.652 Presence of left artificial knee joint | CPT/HCPCS: 97110; 97140; 97163 ==

== ENCOUNTER 2024-08-28 08:00 | Outpatient (RCR) | payer MEDICARE, SELFPAY | END 2024-08-28 23:59 | disposition home or self-care (01) | LOC: PT 08:00 | PROVIDERS: Visit Provider Orthopaedic Surgery Adult Reconstructive Orthopaedic Surgery | DX: Z96.652 Presence of left artificial knee joint (principal) | CPT/HCPCS: 97014; 97110; 97530; G0283 ==

== ENCOUNTER 2024-09-08 10:00 | Outpatient (RCR) | payer MEDICARE, SELFPAY | END 2024-09-08 18:00 | disposition home or self-care (01) | LOC: PT 10:00 | PROVIDERS: Visit Provider Orthopaedic Surgery Adult Reconstructive Orthopaedic Surgery | DX: Z96.652 Presence of left artificial knee joint (principal) | CPT/HCPCS: 97014; 97110; 97530; G0283 ==

== ENCOUNTER 2024-10-14 13:00 | Outpatient (CLI) | payer MEDICARE, SELFPAY ==
--- NOTE | 2024-10-14 13:03 | XR_ITS ---
FINAL REPORT CLINICAL HISTORY: pre-op clearance COMPARISON: 06/09/2024 FINDINGS: 2 views of the chest were obtained . The heart is normal in size. The mediastinum is within normal limits. The lungs are clear. There is no pneumothorax. Osseous structures are unremarkable. IMPRESSION: No acute cardiopulmonary process. Reviewed, Interpreted and Dictated by Julian Rocha MD Transcribed by Janet Richmond Authenticated and [facility]
== END 2024-10-14 23:59 | disposition home or self-care (01) ==
LOC: RAD 13:01
PROVIDERS: PCP Nurse Practitioner Family; Visit Provider Nurse Practitioner Family
DX: Z01.811 Encounter for preprocedural respiratory examination (principal)
CPT/HCPCS: 71046

== ENCOUNTER 2024-12-30 07:00 | Outpatient (RCR) | payer MEDICARE, SELFPAY | END 2024-12-30 23:59 | disposition home or self-care (01) | LOC: PT.CARL 07:00 | PROVIDERS: PCP Nurse Practitioner Family; Visit Provider Orthopaedic Surgery Adult Reconstructive Orthopaedic Surgery | DX: Z47.89 Encounter for other orthopedic aftercare (principal); Z96.651 Presence of right artificial knee joint | CPT/HCPCS: 97014; 97110; 97161; 97530; G0283 ==

== ENCOUNTER 2025-02-08 08:10 | Day surgery (SDC) | payer MEDICARE, SELFPAY ==
[2025-02-08 08:25] VITALS: BMI 32.2
[2025-02-08 08:26] VITALS: BP 141/73; PULSE 54; RESP 20; TEMP 36.6; O2SAT 98
[2025-02-08] MEDS: LIDOCAINE 1% 20ML MDV 20 ML (08:50)
--- NOTE | 2025-02-08 09:04 | P.OP_ITS ---
Date of procedure: 02/08/25 Pre-op Diagnosis:: Cyst right supraclavicular neck Post-op Diagnosis:: Same Procedure performed:: Excision of skin cyst to right supraclavicular area (excisional length 2 cm) with simple closure Surgeon:: Esau Carr MD Anesthesia: local Estimated blood loss (mL): 2 Operative findings:: Supraclavicular superficial cystic type lesion Operative note:: Consent was obtained. Patient was maintained on the stretcher. The area was prepped and draped. Skin was marked with a skin marker. Local anesthetic was infiltrated in the subdermal area inferior to the cyst. Elliptical incision was made around the lesion. Lesion was dissected free from the underlying tissue with tenotomy dissection. It was sent off as a specimen. Limited use of low- power electrocautery was used for hemostasis. Incision was closed with interrupted 4-0 nylon. Clean dry sterile dressing was applied. Condition: stable Disposition: PACU Complications:: None immediately apparent
[2025-02-08 09:05] VITALS: BP 132/74; PULSE 51; RESP 18; TEMP 36.1; O2SAT 99
== END 2025-02-08 09:19 | disposition home or self-care (01) ==
PROVIDERS: PCP Family Medicine; Visit Provider Surgery
PROC: (CPT 11422; principal; 2025-02-08 09:00)
DX: L72.8 Other follicular cysts of the skin and subcutaneous tissue (principal); J44.9 Chronic obstructive pulmonary disease, unspecified; I10 Essential (primary) hypertension; Z90.5 Acquired absence of kidney; Z79.899 Other long term (current) drug therapy; H90.3 Sensorineural hearing loss, bilateral; F17.210 Nicotine dependence, cigarettes, uncomplicated
CPT/HCPCS: 11422; J2003; J2795